=== PATIENT | male | born 2000 | race Caucasian/White ===

== ENCOUNTER 2022-09-08 21:21 | Emergency (ER) | payer OTHER, SELFPAY ==
[2022-09-08 21:38] VITALS: BP 129/65; PULSE 67; RESP 16; TEMP 36.9; O2SAT 98; BMI 23.6
--- NOTE | 2022-09-08 22:37 | ED_ITS ---
HPI - Wound/Laceration General Chief Complaint: Wound/Laceration Stated Complaint: cut right thumb Time Seen by Provider: 09/08/22 22:35 Source: patient Mode of arrival: Ambulatory Limitations: no limitations History of Present Illness HPI narrative: Patient is an otherwise healthy 22-year-old male who is here for evaluation of a cut to his right thumb. He states he cut it on a paper towel dispenser. He is up-to-date on his tetanus. It started to bleed afterwards. He covered with a bandage and came to the emergency department. Related Data Allergies Allergy/AdvReac Type Severity Reaction Status Date / Time No Known Drug Allergies Allergy Verified 09/08/22 21:38 Review of Systems Constitutional Constitutional: Reports system reviewed and no additional complaints, except as documented Musculoskeletal Musculoskeletal: Reports system reviewed and no additional complaints, except as documented Integumentary/Breasts Skin/Breast: Reports system reviewed and no additional complaints, except as documented Neurologic Neurologic: Reports system reviewed and no additional complaints, except as documented Hematologic/Lymphatic On Anticoagulants: No Patient History Social History Smoking Status: Never smoker Smoking Status: Never smoker alcohol intake frequency: holidays/special occasions only Substance Use Type: does not use Exam Initial Vital Signs Initial Vital Signs: Vital Signs Temperature 98.4 F 09/08/22 21:38 Pulse Rate 67 09/08/22 21:38 Respiratory Rate 16 09/08/22 21:38 Blood Pressure 129/65 09/08/22 21:38 Pulse Oximetry 98 09/08/22 21:38 Oxygen Delivery Method 09/08/22 21:38 Const General: cooperative and comfortable HENMT Head: normal to inspection Resp Effort & Inspection: normal respiratory effort Cardio Rate: regular rate Skin Other: Patient has a very small cut to the very tip of the right thumb that also e xtends right along the nail of the thumb. Neuro General: patient alert, patient awake and moves all extremities Extrem General: normal to inspection Procedures Laceration Repair Laceration 1: Site: hand Side (If applicable): right Size (cm): 1 Description: linear Depth: simple, single layer Skin layer closed with: dermabond Course Vital Signs Vital signs: Vital Signs - 8 hr 09/08/22 21:38 09/08/22 22:42 Temperature 98.4 F Pulse Rate 67 62 Respiratory Rate 16 18 Blood Pressure 129/65 125/62 Pulse Oximetry 98 98 Oxygen Delivery Method Room Air Room Air MDM - Wound/Laceration MDM Narrative Medical decision making narrative: Patient has a very superficial laceration to the tip of his right thumb that was closed with Dermabond after extensive cleaning under the sink. There is no indication of any infection. No indication for antibiotics. Low suspicion for fracture or foreign body. Patient was given care instructions and return precautions. He expressed understanding and agreement. Discharge Plan Departure Patient Disposition: Home Clinical Impression: Laceration Instructions: DI for Minor Laceration Activity Restrictions/Additional Instructions: You can wash your hands like normal. The glue should come off in several days. Try your best not to mess with it and pick it off. Return to the emergency department for any new symptoms. Referrals: ProviderJeff [Primary Care Provider] - Stand Alone Forms: Patient Portal/API
[2022-09-08 22:42] VITALS: BP 125/62; PULSE 62; RESP 18; O2SAT 98
== END 2022-09-08 22:47 | disposition home or self-care (01) ==
PROVIDERS: Emergency Provider Emergency Medicine
DX: S61.011A Laceration without foreign body of right thumb without damage to nail, initial encounter (principal); W45.8XXA Other foreign body or object entering through skin, initial encounter
CPT/HCPCS: 12001; 99282; 99283

== ENCOUNTER 2023-01-08 20:59 | Observation (INO) | payer OTHER, SELFPAY ==
[2023-01-08 21:06] VITALS: BP 139/77; PULSE 102; RESP 17; TEMP 37.7; O2SAT 99; BMI 23.6
--- NOTE | 2023-01-08 21:12 | DI.RAD.S_ITS ---
PROCEDURE: XR CHEST 1V INDICATIONS: chest pain TECHNIQUE: One view of the chest was acquired. COMPARISON: None. FINDINGS: Surgical changes and devices: None. Lungs and pleura: Lungs are clear. No pleural effusions or pneumothorax. Mediastinum: Mediastinal contours appear normal. Heart size is normal. Bones and chest wall: No suspicious bony lesions. Overlying soft tissues appear unremarkable. IMPRESSION: No acute cardiopulmonary findings Approved by: Stew Penny M.D. on 01/08/2023 at 21:00
[2023-01-08] MEDS: SODIUM CHLORIDE 0.9% 1,000 ML 1000 ML IV ×2 (21:20→22:34)
[2023-01-08 21:31] LABS: Add Manual Diff / Slide Review NO; Basophils Absolute Auto 100 /uL (0-100); Basophils Percent Auto 0.4 % (0-2); Eosinophils Absolute Auto 0 /uL (0-450); Eosinophils Percent Auto 0.3 % (2-4); Hematocrit 34.8 % (41-53); Hemoglobin 11.9 g/dL (13.5-17.5); Lymphocytes Absolute Auto 1300 /uL (1100-4500); Lymphocytes Percent Auto 9.6 % (25-40); Mean Corpuscular Volume 88.2 fL (80-100); Monocytes Absolute Auto 1200 /uL (0-900); Monocytes Percent Auto 9.5 % (3-14); Neutrophils Absolute Auto 10500 /uL (1500-7000); Neutrophils Percent Auto 80.2 % (50-75); Platelet Count 257 X10^3/uL (150-400); Red Blood Cell Count 3.95 X10^6/uL (4.5-5.9); White Blood Cell Count 13.1 X10^3/uL (4.5-11.0)
[2023-01-08 21:43] LABS: Alanine Aminotransferase 151 IU/L (<50); Albumin 3.9 g/dL (3.5-5.0); Albumin Globulin Ratio 1.4 (1.0-2.8); Alkaline Phosphatase 87 U/L (38-126); BUN Creatinine Ratio 29.1 (6-22); Bilirubin Total 0.8 mg/dL (0.2-1.3); Blood Urea Nitrogen 34 mg/dL (9-20); Calcium 8.2 mg/dL (8.4-10.2); Carbon Dioxide 25 mmol/L (22-32); Chloride 103 mmol/L (98-107); Estimated Glomerular Filt Rate > 60 mL/min (>60); Globulin 2.8 g/dL (1.7-4.1); Glucose 108 mg/dL (70-100); HEMOLYSIS < 15 (0-50); Lipase 86 U/L (23-300); Magnesium 2.2 mg/dL (1.6-2.3); Potassium 4.1 mmol/L (3.4-5.1); Sodium 135 mmol/L (137-145); Total Protein 6.7 g/dL (6.3-8.2)
[2023-01-08 21:49] LABS: Aspartate Aminotransferase 740 IU/L (17-59)
[2023-01-08 21:55] LABS: Troponin I 0.025 ng/mL (0.01-0.034)
[2023-01-08 22:14] LABS: Creatine Kinase 31343 U/L (55-170)
[2023-01-08 22:33] VITALS: BP 116/71; PULSE 91; RESP 14; O2SAT 99
[2023-01-08 23:14] LABS: Appearance Urine UA CLEAR; Bilirubin Urine UA NEGATIVE (NEGATIVE); Color Urine UA YELLOW; Glucose Urine UA NEGATIVE (Negative); Ketones Urine UA NEGATIVE (NEGATIVE); Leukocyte Esterase Urine UA NEGATIVE (NEGATIVE); Nitrite Urine UA NEGATIVE (Negative); Occult Blood Urine UA TRACE-INTACT (Negative); Protein Urine UA NEGATIVE (Negative); Urobilinogen Urine UA 0.2 E.U./dL (0.2)
--- NOTE | 2023-01-08 23:15 | ED_ITS ---
HPI - Extremity Injury (Lower) General Chief Complaint: Extremity Injury, Lower Stated Complaint: significant muscle pain post Ultra [place] Time Seen by Provider: 01/08/23 21:14 Source: patient Mode of arrival: Ambulatory History of Present Illness HPI Narrative: Patient is a 22-year-old healthy male who presents today with body aches. He reports that he ran an ultra marathon 100 miles over the last 24 hours finished around 9:00 a.m. this morning. He reports that he did collapse during race he is having increasing pain all over. Increasing weakness. Trying to stay hydrated. Related Data Home Medications Medication Instructions Recorded Confirmed No Known Home Medications 01/08/23 01/08/23 Allergies Allergy/AdvReac Type Severity Reaction Status Date / Time No Known Drug Allergies Allergy Verified 09/08/22 21:38 Review of Systems Review of Systems ROS Unobtainable: All systems reviewed & are unremarkable except as noted in HPI and below Patient History Social History household members: other Smoking Status: Never smoker alcohol intake: former Smoking Status: Never smoker alcohol intake frequency: a few times a month Substance Use Type: does not use Exam Initial Vital Signs Initial Vital Signs: Vital Signs Temperature 99.8 F H 01/08/23 21:06 Pulse Rate 102 H 01/08/23 21:06 Respiratory Rate 17 01/08/23 21:06 Blood Pressure 139/77 01/08/23 21:06 Pulse Oximetry 99 01/08/23 21:06 Oxygen Delivery Method Room Air 01/08/23 21:06 GENERAL: Alert 22-year-old male appears to not feel well and in no acute distress. HEENT: Head atraumatic,EOMI, pupils reactive, face symmetric, moist mucous membranes CARDIOVASCULAR: Regular rate and rhythm without murmurs, rubs or gallops. RESPIRATORY: Breath sounds equal bilaterally, no wheezes rales or rhonchi. ABDOMEN: Soft, nontender. Normoactive bowel sounds all 4 quadrants. No guarding or rebound. EXTREMITIES: Normal range of motion, no clubbing or edema. Neurovascularly intact NEUROLOGICAL: Alert and oriented x4. SKIN: Warm, dry, no laceration, no petechiae, no rashes or lesions. Course Orders Ordered: ED Orders 01/08/23 23:12 UA Complete [Urinalysis and Microscopic] Stat 01/09/23 05:00 Basic Metabolic Panel Routine Creatine Kinase Routine Acetaminophen (Acetaminophen 325 Mg Tablet) 650 mg PO Q6H PRN PRN Reason: Fever/Mild Pain (1-3) Enoxaparin Sodium (Enoxaparin 40 Mg/0.4 Ml Syringe) 40 mg SUBCUT DAILY [facility] Sodium Chloride (Normal Saline 0.9%) 1,000 mls @ 200 mls/hr IV CONT ARMANI Last Admin: 01/09/23 04:55 Dose: 200 mls/hr Documented By: Infusion: 01/09/23 04:35 Dose: 0 mls/hr Documented By: Admin: 01/08/23 23:35 Dose: 200 mls/hr Documented By: NANCY Naloxone HCl (Naloxone 0.4 Mg/Ml Vial) 0.2 mg IV Q2MIN PRN PRN Reason: Opiate Reversal Ondansetron HCl (Ondansetron 4 Mg/2 Ml Inj) 4 mg IV Q8HR PRN PRN Reason: Nausea And Vomiting Discontinued Medications Aspirin (Aspirin 81 Mg Chew Tab) 324 mg PO NOW ONE Stop: 01/08/23 21:13 Last Admin: 01/08/23 22:35 Dose: Not Given Documented By: JF Sodium Chloride (Normal Saline 0.9%) 1,000 mls @ 1,000 mls/hr IV BOLUS ONE Stop: 01/08/23 22:11 Last Infusion: 01/08/23 22:34 Dose: 0 mls/hr Documented By: Admin: 01/08/23 21:20 Dose: 1,000 mls/hr Documented By: SERGIO Sodium Chloride (Normal Saline 0.9%) 1,000 mls @ 1,000 mls/hr IV BOLUS ONE Stop: 01/08/23 22:14 Last Admin: 01/08/23 22:26 Dose: Not Given Documented By: JF Sodium Chloride (Normal Saline 0.9%) 1,000 mls @ 1,000 mls/hr IV BOLUS ONE Stop: 01/08/23 23:27 Last Infusion: 01/08/23 23:23 Dose: 0 mls/hr Documented By: Admin: 01/08/23 22:34 Dose: 1,000 mls/hr Documented By: JF Ketorolac Tromethamine (Ketorolac 30 Mg/Ml Vial) 15 mg IV NOW ONE Stop: 01/08/23 23:26 Last Admin: 01/08/23 23:35 Dose: 15 mg Documented By: NANCY Vital Signs Vital signs: Vital Signs - 8 hr 01/08/23 21:06 01/08/23 22:33 Temperature 99.8 F H Pulse Rate 102 H 91 H Respiratory Rate 17 14 Blood Pressure 139/77 116/71 Pulse Oximetry 99 99 Oxygen Delivery Method Room Air Room Air MDM - Extremity Injury (Lower) Lab Data 01/08/23 21:20 01/08/23 21:20 Labs: Lab Results 01/08/23 01/08/23 01/08/23 Range/Units 21:20 21:20 23:12 WBC 13.1 H (4.5-11.0) X10^3/uL RBC 3.95 L (4.5-5.9) X10^6/uL Hgb 11.9 L (13.5-17.5) g/dL Hct 34.8 L (41-53) % MCV 88.2 (80-100) fL MCH 30.0 (26-34) PG MCHC 34.0 (30-36) % RDW 13.0 (11.6-14.8) % Plt Count 257 (150-400) X10^3/uL Neut % (Auto) 80.2 H (50-75) % Lymph % (Auto) 9.6 L (25-40) % [place] % (Auto) 9.5 (3-14) % Eos % (Auto) 0.3 L (2-4) % Baso % (Auto) 0.4 (0-2) % Neut # (Auto) 47892 H (8353-0187) /uL Lymph # (Auto) 1300 (7363-0196) /uL [place] # (Auto) 1200 H (0-900) /uL Eos # (Auto) 0 (0-450) /uL Baso # (Auto) 100 (0-100) /uL Sodium 135 L (137-145) mmol/L Potassium 4.1 (3.4-5.1) mmol/L Chloride 103 (98-107) mmol/L Carbon Dioxide 25 (22-32) mmol/L BUN 34 H (9-20) mg/dL Creatinine 1.17 (0.66-1.25) mg/dL Estimated GFR > 60 (>60) mL/min BUN/Creatinine Ratio 29.1 H (6-22) Glucose 108 H (70-100) mg/dL Calcium 8.2 L (8.4-10.2) mg/dL Magnesium 2.2 (1.6-2.3) mg/dL Total Bilirubin 0.8 (0.2-1.3) mg/dL AST 740 H (17-59) IU/L ALT 151 H (<50) IU/L Alkaline Phosphatase 87 (38-126) U/L Total Creatine Kinase 84299 H (55-170) U/L CK-MB (CK-2) TNP CK-MB (CK-2) Rel Index TNP Troponin I 0.025 (0.01-0.034) ng/mL Total Protein 6.7 (6.3-8.2) g/dL Albumin 3.9 (3.5-5.0) g/dL Globulin 2.8 (1.7-4.1) g/dL Albumin/Globulin Ratio 1.4 (1.0-2.8) Lipase 86 (23-300) U/L Urine Color Yellow Urine Appearance Clear Urine pH 6.0 (4.5-8.0) Ur Specific [place] 1.020 (1.000-1.035) Urine Protein Negative (Negative) Urine Glucose (UA) Negative (Negative) g/dL Urine Ketones Negative (NEGATIVE) Urine Occult Blood Trace-intact (Negative) Urine Nitrate Negative (Negative) Urine Bilirubin Negative (NEGATIVE) Urine Urobilinogen 0.2 (0.2) E.U./dL Ur Leukocyte Esterase Negative (NEGATIVE) Urine RBC 1-5/hpf (0-5/HPF) Urine WBC 0-1/hpf (0-5/HPF) Ur Squamous Epith Cells 0-1 /hpf (0-5/HPF) Urine Bacteria None seen (None) Ur Culture Indicated? Cult not indicated ECG Data Interpretation: Normal sinus rhythm rate 83 [place] interval 142 QRS [address] changes or T- wave inversions no priors to compare MDM Narrative Medical decision making narrative: Patient healthy 22-year-old male who had altered marathon race today presents with muscle pain and weakness found to have rhabdomyolysis with CPK greater than 30,000. He has normal kidney function. He is given 2 L normal saline he is urinated some. AST ALT are also elevated thought to be secondary to rh abdomyolysis. He is no right upper quadrant pain and a normal bilirubin. No other abnormalities. Dr. Mast accepts patient Discharge Plan Departure Patient Disposition: Admitted As Inpatient Clinical Impression: Rhabdomyolysis Admit Date/Time: 01/09/23 00:57 Admit Provider: Humberto Mast
[2023-01-08 23:32] LABS: Bacteria Urine None Seen; Culture Indicated Urine Cult Not Indicated; RBC Urine 1-5/HPF (0-5/HPF); Squamous Epithelial Cell Urine 0-1 /HPF (0-5/HPF); WBC Urine 0-1/HPF (0-5/HPF)
[2023-01-08] MEDS: SODIUM CHLORIDE 0.9% 1,000 ML 200 ML IV (23:35)
[2023-01-08] MEDS: KETOROLAC 30 MG/ML VIAL 15 MG IV (23:35)
[2023-01-08 23:41] VITALS: BP 123/58; PULSE 83; RESP 16; O2SAT 97
[2023-01-09] VITALS (8 sets, daily range): BP systolic 112–131; BP diastolic 50–65; PULSE 52–85; RESP 14–26; TEMP 35.8–37.1; O2SAT 97–100; BMI 23.6
--- NOTE | 2023-01-09 00:23 | PM.HP.1 ---
History of Present Illness History of Present Illness Date Patient Seen: 01/09/23 Time Patient Seen: 00:30 Chief complaint: significant muscle pain post Ultra [place] Narrative: Mr. Mcdonald is a 22M with no PMH who comes to the hospital with muscle pain. 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 He collapsed during the race. Afterwards he developed generalized muscle pain in his lower legs and weakness. In the ED workup was done, vitals notable for afebrile, heart rate 100s, respiratory rate 18, blood pressure 130s/70s, sats 99% on room air. Labs reviewed by me and notable for WBC 13.1, hgb 11.9, plts 257. Na 135, k 4.1, BUN 34, creatinine 1.17. AST 740, [place] [address]. Trop 0.025. UA negative. He was ordered IV fluids and admitted for further treatment. [facility] Social History Smoking Status: Never smoker Meds Home Medications and Allergies Home Medications Medication Instructions Recorded Confirmed Type No Known Home Medications 01/08/23 01/08/23 History Allergies Allergy/AdvReac Type Severity Reaction Status Date / Time No Known Drug Allergies Allergy Verified 09/08/22 21:38 Review of Systems Review of Systems Narrative: 14 systems reviewed and negative aside from what is noted in HPI Exam Vital Signs (past 8 hours): - 01/08/23 21:06 01/08/23 22:33 Temperature 99.8 F H Pulse Rate 102 H 91 H Respiratory Rate 17 14 Blood Pressure 139/77 116/71 Pulse Oximetry 99 99 Oxygen Delivery Method Room Air Room Air Oxygen Delivery Method Room Air Narrative Exam Narrative: GEN: no acute distress HEENT: moist mucous membranes, PERRL NECK: trachea midline, no JVD PULM: clear bilaterally CV: regular rate and rhythm, no murmurs ABD: soft, nontender, nondistended, no organomegaly EXT: warm and well perfused with no edema, tenderness in his bilateral quads NEURO: awake, alert, oriented, no focal deficits Objective Labs 01/08/23 21:20 01/08/23 21:20 Labs: Laboratory Results - last 24 hr 01/08/23 01/08/23 01/08/23 21:20 21:20 23:12 WBC 13.1 H RBC 3.95 L Hgb 11.9 L Hct 34.8 L MCV 88.2 MCH 30.0 MCHC 34.0 RDW 13.0 Plt Count 257 Neut % (Auto) 80.2 H Lymph % (Auto) 9.6 L [place] % (Auto) 9.5 Eos % (Auto) 0.3 L Baso % (Auto) 0.4 Neut # (Auto) 46056 H Lymph # (Auto) 1300 [place] # (Auto) 1200 H Eos # (Auto) 0 Baso # (Auto) 100 Sodium 135 L Potassium 4.1 Chloride 103 Carbon Dioxide 25 BUN 34 H Creatinine 1.17 Estimated GFR > 60 BUN/Creatinine Ratio 29.1 H Glucose 108 H Calcium 8.2 L Magnesium 2.2 Total Bilirubin 0.8 AST 740 H ALT 151 H Alkaline Phosphatase 87 Total Creatine Kinase 44849 H CK-MB (CK-2) TNP CK-MB (CK-2) Rel Index TNP Troponin I 0.025 Total Protein 6.7 Albumin 3.9 Globulin 2.8 Albumin/Globulin Ratio 1.4 Lipase 86 Urine Color Yellow Urine Appearance Clear Urine pH 6.0 Ur Specific [place] 1.020 Urine Protein Negative Urine Glucose (UA) Negative Urine Ketones Negative Urine Occult Blood Trace-intact Urine Nitrate Negative Urine Bilirubin Negative Urine Urobilinogen 0.2 Ur Leukocyte Esterase Negative Urine RBC 1-5/hpf Urine WBC 0-1/hpf Ur Squamous Epith Cells 0-1 /hpf Urine Bacteria None seen Ur Culture Indicated? Cult not indicated Assessment & Plan Assessment & Plan narrative: 1. Acute rhabdomyolysis -secondary to excessive running -CK notable for being >30,000, AST/ALT 740/151 -initial creatinine 1.17 -monitor urine output closely -no evidence of compartment syndrome closely, watch closely for development I have discussed plan and obtained history from the patient. I have discussed plan of care with ED physician and bedside nurse. I have reviewed labs, imaging. CODE: Full Proxy: Delmer Mcdonald, father Quality [facility] - Meds 'Current medications' to include all prescriptions, [id number] products, herbals, cannabis/cannabidiol products, and vitamin/mineral/dietary (nutritional) supplements. I have utilized all available resources to obtain, update, or review the patient?s current medications. [If Yes, STOP here]: Yes
[2023-01-09] MEDS: SODIUM CHLORIDE 0.9% 1,000 ML 200 ML IV ×4 (04:55→21:39)
--- NOTE | 2023-01-09 08:46 | PM.PN.1 ---
Subjective Subjective Interval history: Feeling somewhat better. Having slightly less pain in his lower extremities. No new problems. Exam Vital Signs (past 8 hours): - 01/09/23 01:25 01/09/23 01:48 01/09/23 05:51 Temperature 97.1 F L 98.2 F Pulse Rate 85 74 71 Respiratory Rate 26 H 14 16 Blood Pressure 118/58 L 120/50 L 127/53 L Pulse Oximetry 100 97 98 Oxygen Delivery Method Room Air Oxygen Flow Rate 0 Oxygen Delivery Method Room Air Oxygen Flow Rate 0 Narrative Exam Narrative: GEN: no acute medical distress HEENT: moist mucous membranes, PERRL NECK: trachea midline, no JVD PULM: clear bilaterally, no wheezes or crackles. CV: regular rate and rhythm, no murmurs ABD: soft, nontender, nondistended, no organomegaly EXT: warm and well perfused with no edema, tenderness in his bilateral of the thighs NEURO: awake, alert, oriented, no focal deficits Objective Labs 01/08/23 21:20 01/08/23 21:20 Labs: Laboratory Results - last 24 hr 01/08/23 01/08/23 01/08/23 21:20 21:20 23:12 WBC 13.1 H RBC 3.95 L Hgb 11.9 L Hct 34.8 L MCV 88.2 MCH 30.0 MCHC 34.0 RDW 13.0 Plt Count 257 Neut % (Auto) 80.2 H Lymph % (Auto) 9.6 L [place] % (Auto) 9.5 Eos % (Auto) 0.3 L Baso % (Auto) 0.4 Neut # (Auto) 35568 H Lymph # (Auto) 1300 [place] # (Auto) 1200 H Eos # (Auto) 0 Baso # (Auto) 100 Sodium 135 L Potassium 4.1 Chloride 103 Carbon Dioxide 25 BUN 34 H Creatinine 1.17 Estimated GFR > 60 BUN/Creatinine Ratio 29.1 H Glucose 108 H Calcium 8.2 L Magnesium 2.2 Total Bilirubin 0.8 AST 740 H ALT 151 H Alkaline Phosphatase 87 Total Creatine Kinase 25538 H CK-MB (CK-2) TNP CK-MB (CK-2) Rel Index TNP Troponin I 0.025 Total Protein 6.7 Albumin 3.9 Globulin 2.8 Albumin/Globulin Ratio 1.4 Lipase 86 Urine Color Yellow Urine Appearance Clear Urine pH 6.0 Ur Specific [place] 1.020 Urine Protein Negative Urine Glucose (UA) Negative Urine Ketones Negative Urine Occult Blood Trace-intact Urine Nitrate Negative Urine Bilirubin Negative Urine Urobilinogen 0.2 Ur Leukocyte Esterase Negative Urine RBC 1-5/hpf Urine WBC 0-1/hpf Ur Squamous Epith Cells 0-1 /hpf Urine Bacteria None seen Ur Culture Indicated? Cult not indicated PFSH Social History household members: other Smoking Status: Never smoker alcohol intake: former Assessment & Plan Assessment & Plan narrative: Acute rhabdomyolysis -secondary to excessive running -CK notable for being >30,000, AST/ALT 740/151 on admission. Labs for today pending. -initial creatinine 1.17, labs for today pending -monitor urine output closely, has been adequate -no evidence of compartment syndrome closely, continue to follow the assessment. CODE: Full Proxy: Delmer Mcdonald, father Quality VTE Deep Vein Thrombosis/Pulmonary Embolism Present on Admission: No
[2023-01-09 10:08] LABS: Add Manual Diff / Slide Review NO; Basophils Absolute Auto 0 /uL (0-100); Basophils Percent Auto 0.2 % (0-2); Eosinophils Absolute Auto 100 /uL (0-450); Eosinophils Percent Auto 1.1 % (2-4); Hematocrit 29.2 % (41-53); Lymphocytes Absolute Auto 1400 /uL (1100-4500); Lymphocytes Percent Auto 16.8 % (25-40); Mean Corpuscular HGB Conc 34.1 % (30-36); Mean Corpuscular Hemoglobin 30.8 PG (26-34); Mean Corpuscular Volume 90.4 fL (80-100); Monocytes Absolute Auto 800 /uL (0-900); Monocytes Percent Auto 9.9 % (3-14); Neutrophils Absolute Auto 5800 /uL (1500-7000); Platelet Count 175 X10^3/uL (150-400); Red Blood Cell Count 3.24 X10^6/uL (4.5-5.9); White Blood Cell Count 8.1 X10^3/uL (4.5-11.0)
[2023-01-09 10:19] LABS: Alanine Aminotransferase 118 IU/L (<50); Albumin 3.2 g/dL (3.5-5.0); Albumin Globulin Ratio 1.5 (1.0-2.8); Alkaline Phosphatase 71 U/L (38-126); Aspartate Aminotransferase 476 IU/L (17-59); BUN Creatinine Ratio 24.2 (6-22); Bilirubin Total 0.3 mg/dL (0.2-1.3); Blood Urea Nitrogen 22 mg/dL (9-20); Calcium 7.8 mg/dL (8.4-10.2); Carbon Dioxide 26 mmol/L (22-32); Chloride 108 mmol/L (98-107); Estimated Glomerular Filt Rate > 60 mL/min (>60); Globulin 2.2 g/dL (1.7-4.1); Glucose 96 mg/dL (70-100); HEMOLYSIS < 15 (0-50); Potassium 4.6 mmol/L (3.4-5.1); Sodium 136 mmol/L (137-145); Total Protein 5.4 g/dL (6.3-8.2)
[2023-01-09 10:45] LABS: Creatine Kinase 17663 U/L (55-170)
--- NOTE | 2023-01-09 11:27 | CM.DANOTE ---
Initial Discharge Assessment Note: Case reviewed, met with patient. Introduced self and role. Payer: [employer] and self pay PCP: Provider Jeff ALVES 22 year old male collapsed during marathon yesterday. Admitted for muscle pain and weakness to LE. Diagnosed with acute rhabdomylysis, CK >30,000. Labs being monitored. 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 Independent. Contact is his father Delmer. Plan: When medically cleared, return back to [facility]. GABE Discharge Planning/Care Management CM Discharge Assessment Start: 01/09/23 08:27 Freq: Status: Active Protocol: Document 01/09/23 11:26 (Rec: 01/09/23 11:27 [id number]) Discharge Planning Assessment Assigned Jacquard Card Cutter Camryn Villalobos RN/DCP Advance Directives? No History Provided By Patient Prior Living Arrangements Other Comment [facility] Household Members other Type of transporation used prior to Drives own vehicle admit Independent with ADL's Yes Is patient alert and oriented? Yes Caregiver for Another No Barriers to Discharge No Referrals Initiated None needed Review Status In Process Next Review Type Continued Stay Review
[2023-01-10] MEDS: SODIUM CHLORIDE 0.9% 1,000 ML 200 ML IV ×2 (02:40→07:37)
[2023-01-10 04:10] VITALS: BP 119/62; PULSE 47; RESP 16; TEMP 36.6; O2SAT 98
[2023-01-10 06:44] LABS: Add Manual Diff / Slide Review NO; Basophils Absolute Auto 0 /uL (0-100); Basophils Percent Auto 0.7 % (0-2); Eosinophils Absolute Auto 200 /uL (0-450); Eosinophils Percent Auto 3.4 % (2-4); Hemoglobin 9.9 g/dL (13.5-17.5); Lymphocytes Absolute Auto 1700 /uL (1100-4500); Lymphocytes Percent Auto 27.4 % (25-40); Mean Corpuscular HGB Conc 34.2 % (30-36); Mean Corpuscular Volume 90.6 fL (80-100); Monocytes Absolute Auto 600 /uL (0-900); Monocytes Percent Auto 10.4 % (3-14); Neutrophils Absolute Auto 3600 /uL (1500-7000); Neutrophils Percent Auto 58.1 % (50-75); Platelet Count 186 X10^3/uL (150-400); Red Blood Cell Count 3.21 X10^6/uL (4.5-5.9); Red Cell Distribution Width 12.9 % (11.6-14.8); White Blood Cell Count 6.1 X10^3/uL (4.5-11.0)
[2023-01-10 07:06] LABS: BUN Creatinine Ratio 16.9 (6-22); Blood Urea Nitrogen 13 mg/dL (9-20); Calcium 7.7 mg/dL (8.4-10.2); Carbon Dioxide 25 mmol/L (22-32); Chloride 109 mmol/L (98-107); Estimated Glomerular Filt Rate > 60 mL/min (>60); Glucose 97 mg/dL (70-100); HEMOLYSIS < 15 (0-50); Potassium 4.1 mmol/L (3.4-5.1); Sodium 137 mmol/L (137-145)
[2023-01-10 07:22] LABS: Creatine Kinase 9519 U/L (55-170)
[2023-01-10 08:00] VITALS: BP 123/56; PULSE 48; RESP 18; TEMP 36.9; O2SAT 100
--- NOTE | 2023-01-10 08:17 | P.DS_ITS ---
History of Present Illness History of Present Illness Date Patient Seen: 01/10/23 Chief complaint: significant muscle pain post Ultra [place] Narrative: Patient still having some discomfort in his thighs. Not requiring pain medication at this time. Discharge Providers Provider Date of admission: 01/09/23 00:57 Discharge Date: 01/10/23 Primary care physician: Dimitry Allen DO Discharge provider: Amira Loco MD Summary Hospital Course Discharge Diagnosis: Acute rhabdomyolysis Elevated creatinine kinase Leukocytosis Mild anemia new line mild hyponatremia new line dehydration Elevated liver enzymes Acute acne on forehead Hospital Course: Mr. Mcdonald is a 22M with no PMH who came to the hospital with muscle pain. 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 He collapsed during the race. Afterwards he developed generalized muscle pain in his lower legs and weakness. On presentation, labs were as follows: WBC 13.1, hgb 11.9, plts 257. Na 135, k 4.1, BUN 34, creatinine 1.17. AST 740, [place] [address]. Trop 0.025. UA negative. He was ordered IV fluids and admitted for further min and observation. Since CK level consistently decreased by approximately half each day and on the day of discharge to his CK was 9519. He was instructed to drink 16-17 oz of Pedialyte during his waking hours through the end of January 15, 2023. This should sufficiently decrease his CK level as his muscles recover. Creatinine and GFR remained normal during the hospital stay. Patient was to [employer] from January 09 through January 11. He was given a note to be off work during these days. Patient developed acute acne on his forehead likely where his cap was during the race and he was prescribed cephalexin 500 mg q.i.d. for 5 days on discharge. Status at Discharge Cognitive/behavioral status at discharge: at baseline, oriented Functional status at discharge: independent ambulation Time Spent with Patient Time spent: Greater than 30 minutes Exam Vital Signs (past 8 hours): - 01/10/23 04:10 Temperature 97.8 F Pulse Rate 47 L Respiratory Rate 16 Blood Pressure 119/62 Pulse Oximetry 98 Oxygen Flow Rate 0 Oxygen Delivery Method Room Air Oxygen Flow Rate 0 Objective Labs 01/10/23 06:25 01/10/23 06:25 Labs: Laboratory Results - last 24 hr 01/09/23 01/09/23 01/09/23 09:45 09:45 09:45 WBC 8.1 RBC 3.24 L Hgb 10.0 L Hct 29.2 L MCV 90.4 MCH 30.8 MCHC 34.1 RDW 13.0 Plt Count 175 Neut % (Auto) 72.0 Lymph % (Auto) 16.8 L [place] % (Auto) 9.9 Eos % (Auto) 1.1 L Baso % (Auto) 0.2 Neut # (Auto) 5800 Lymph # (Auto) 1400 [place] # (Auto) 800 Eos # (Auto) 100 Baso # (Auto) 0 Sodium 136 L Potassium 4.6 Chloride 108 H Carbon Dioxide 26 BUN 22 H Creatinine 0.91 Estimated GFR > 60 BUN/Creatinine Ratio 24.2 H Glucose 96 Calcium 7.8 L Total Bilirubin 0.3 AST 476 H ALT 118 H Alkaline Phosphatase 71 Total Creatine Kinase 19675 H D Total Protein 5.4 L Albumin 3.2 L Globulin 2.2 Albumin/Globulin Ratio 1.5 01/10/23 01/10/23 06:25 06:25 WBC 6.1 RBC 3.21 L Hgb 9.9 L Hct 29.0 L MCV 90.6 MCH 31.0 MCHC 34.2 RDW 12.9 Plt Count 186 Neut % (Auto) 58.1 Lymph % (Auto) 27.4 [place] % (Auto) 10.4 Eos % (Auto) 3.4 Baso % (Auto) 0.7 Neut # (Auto) 3600 Lymph # (Auto) 1700 [place] # (Auto) 600 Eos # (Auto) 200 Baso # (Auto) 0 Sodium 137 Potassium 4.1 Chloride 109 H Carbon Dioxide 25 BUN 13 Creatinine 0.77 Estimated GFR > 60 BUN/Creatinine Ratio 16.9 Glucose 97 Calcium 7.7 L Total Bilirubin AST ALT Alkaline Phosphatase Total Creatine Kinase 9519 H D Total Protein Albumin Globulin Albumin/Globulin Ratio [facility] Social History household members: other Smoking Status: Never smoker alcohol intake: former Discharge Plan Discharge Plan Patient Disposition: Home Provider Discharge Comment: Alfred should be off work to include January 09 (inhospital) through January 11, 2023 to allow his muscles to recover effectively. Discharge orders & Medications Prescriptions: New cephalexin 250 mg Capsule 500 mg PO QID Qty: 20 0RF Follow up/Referrals: Provider,Jeff ALVES [Non-Staff] - Diet/Activity/Treatments Diet: Diet as Tolerated Diet comment: Drink 16-17 oz every hour when awake of Pedialyte until the end of January 15 Visit Report/Discharge Packet Instructions: Rhabdomyolysis Stand Alone Forms: Patient Portal/API, Stroke Signs & Symptoms Discharge Data Primary Care Provider: Dimitry Allen Attending Provider: Humberto Mast Admmeme Date/Time: 01/09/23 00:57 Quality VTE Deep Vein Thrombosis/Pulmonary Embolism Present on Admission: No
[2023-01-10] MEDS: cephALEXin 250 MG CAPSULE 500 MG PO (08:29)
== END 2023-01-10 09:49 | disposition home or self-care (01) ==
LOC: ED 21:14 → AC 01-09 09:12
PROVIDERS: Neuromusculoskeletal Medicine, Sports Medicine; Admitting Provider Internal Medicine; Emergency Provider Emergency Medicine; PCP Family Medicine; Referring Provider Emergency Medicine; Visit Provider Internal Medicine
DX: M62.82 Rhabdomyolysis (principal)
CPT/HCPCS: 36415; 71045; 80048; 80053; 81001; 82550; 83690; 83735; 84484; 85025; 93005; 96361; 96374; 99284; G0378; J1885

== ENCOUNTER → 2023-10-31 | Outpatient (CLI) | payer OTHER, SELFPAY ==
[2023-01-09 01:48] VITALS: BMI 23.6
--- NOTE | 2023-10-31 | DI.MRI.S_ITS ---
PROCEDURE: MR ANKLE LT WO CON INDICATIONS: SPRAIN OF LEGAMENT OF LEFT ANKLE TECHNIQUE: Noncontrast sagittal T1 spin echo and T2 fast spin echo with fat saturation, axial proton density fast spin echo and T2 fast spin echo with fat saturation, coronal T1 spin echo and T2 fast spin echo with fat saturation through the ankle/hindfoot. COMPARISON: None. FINDINGS: Image quality: Excellent. Bones and joints: No bone marrow contusions or fractures. No hindfoot coalitions. Nonspecific subcortical cystic changes involving superior aspect of calcaneus adjacent to subtalar joint. No suspicious intraosseous lesion. No osteochondral injuries of the talar dome. Small tibiotalar joint effusion is seen, no gross loose bodies. Medial structures: The posterior tibialis, flexor digitorum longus, and flexor hallucis longus tendons are intact. The posterior tibial neurovascular bundle appears normal within the tarsal tunnel, without extrinsic mass effect. Mildly thickened deep fibers of the deltoid ligament is seen. The superficial fibers of deltoid ligament and spring ligament are grossly intact. Lateral structures: The anterior talofibular, calcaneofibular, and posterior talofibular ligaments appear thickened with intrasubstance T2 hyperintense signal more notably involving anterior talofibular ligament near its medial insertion. More superiorly, the anterior and posterior tibiofibular ligaments appear thickened with intrasubstance T2 hyperintense signal. The tibiofibular syndesmosis is normal in width at 2 mm or less. The peroneus brevis tendon is intact. The peroneus longus tendon is thickened with mild surrounding edema at the level of mid to distal calcaneus extending to the level of cuboid. Adjacent bony peroneal tubercle and retrotrochlear prominence are normal in size. The sinus tarsi demonstrates normal fatty signal, without edema, fibrosis, or cyst formation. Visualized sinus tarsi components (cervical ligament, interosseous talocalcaneal ligament, roots of the inferior extensor retinaculum) appear normal. Anterior structures: The tibialis anterior, extensor hallucis longus, and extensor digitorum longus tendons appear intact. The dorsal talonavicular ligament appears intact. Posterior and plantar structures: Achilles tendon is mildly thickened at its posterior calcaneal insertion. Medial and lateral bands of the plantar fascia are of normal thickness. No abductor digiti quinti muscle atrophy to suggest Nj neuropathy. IMPRESSION: 1. No marrow edema. No fracture or dislocation. No osteochondral injuries of talar dome. Small joint effusion, no gross loose bodies. 2. Low-grade sprain involving deep fibers of deltoid ligament. 3. Low to moderate grade partial-thickness tear involving lateral ankle ligaments most notably involving anterior talofibular ligament near its medial insertion. No full-thickness ankle ligament rupture. 4. 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 5. Distal Achilles tendinosis at its posterior calcaneal insertion. No Achilles tendon rupture. Dictated by: Horace Hebert M.D. on 11/01/2023 at 8:09 Approved by: Horace Hebert M.D. on 11/01/2023 at 8:16
== END ==
LOC: MRI 16:07
PROVIDERS: PCP Family Medicine; Referring Provider Family Medicine; Visit Provider Family Medicine
DX: S93.422A Sprain of deltoid ligament of left ankle, initial encounter (principal); S93.492A Sprain of other ligament of left ankle, initial encounter; M25.472 Effusion, left ankle; X58.XXXA Exposure to other specified factors, initial encounter
CPT/HCPCS: 73721